=== PATIENT | female | born 1935 ===

== ENCOUNTER 2018-10-11 13:10 | Outpatient (CLI) | payer OTHER ==
[~2018-10-11] VITALS: Ht 167.6 cm; Wt 77.1 kg
== END 2018-10-11 13:30 | disposition home or self-care (01) ==
LOC: OFIC 805 13:10
DX: H61.21 Impacted cerumen, right ear (principal); H92.11 Otorrhea, right ear

== ENCOUNTER 2018-10-11 13:56 | Outpatient (CLI) | payer OTHER | END 2018-10-11 14:15 | disposition home or self-care (01) | LOC: LAB 13:56 | DX: H61.91 Disorder of right external ear, unspecified (principal) ==

== ENCOUNTER 2018-10-16 11:40 | Outpatient (CLI) | payer OTHER | END 2018-10-16 11:50 | disposition home or self-care (01) | LOC: OFIC 805 11:40 | DX: H92.11 Otorrhea, right ear (principal); H60.8X1 Other otitis externa, right ear ==

== ENCOUNTER 2018-11-18 11:21 | Outpatient (CLI) | payer OTHER ==
[~2018-11-18] VITALS: Ht 152.4 cm; Wt 77.1 kg
== END 2018-11-18 11:40 | disposition home or self-care (01) ==
LOC: OFIC 805 11:21
DX: H61.21 Impacted cerumen, right ear (principal); H92.11 Otorrhea, right ear; H66.91 Otitis media, unspecified, right ear

== ENCOUNTER 2018-12-14 12:33 | Outpatient (CLI) | payer OTHER ==
[~2018-12-14] VITALS: Ht 152.4 cm; Wt 77.1 kg
== END 2018-12-14 12:50 | disposition home or self-care (01) ==
LOC: OFIC 805 12:33
DX: H66.91 Otitis media, unspecified, right ear (principal); H60.8X1 Other otitis externa, right ear; H92.11 Otorrhea, right ear; H61.21 Impacted cerumen, right ear

== ENCOUNTER 2018-12-17 10:45 | Outpatient (CLI) | payer OTHER | END 2018-12-17 15:00 | disposition home or self-care (01) | LOC: LAB 10:45 | DX: H61.91 Disorder of right external ear, unspecified (principal) ==